=== PATIENT | female | born 1980 | race Asian ===

== ENCOUNTER → 2017-05-07 | Outpatient (CLI) | payer MEDICAID | END | disposition home or self-care (01) | LOC: WOUND 11:49 | PROVIDERS: ATTEND Internal Medicine | DX: L89.892 Pressure ulcer of other site, stage 2 (principal); F17.210 Nicotine dependence, cigarettes, uncomplicated; Z72.89 Other problems related to lifestyle | CPT/HCPCS: 97597; 99204 ==

== ENCOUNTER → 2017-05-12 | Outpatient (CLI) | payer MEDICAID | END | disposition home or self-care (01) | LOC: WOUND 10:55 | PROVIDERS: ATTEND Internal Medicine | DX: E11.622 Type 2 diabetes mellitus with other skin ulcer (principal); L89.892 Pressure ulcer of other site, stage 2; L98.491 Non-pressure chronic ulcer of skin of other sites limited to breakdown of skin; F17.210 Nicotine dependence, cigarettes, uncomplicated | CPT/HCPCS: 99215 ==